=== PATIENT | male | born 1960 ===

== ENCOUNTER → 2018-10-30 | Outpatient (CLI) | payer OTHER | LOC: FIMAGING 07:51 | PROVIDERS: ATTEND Orthopaedic Surgery | DX: Z01.818 Encounter for other preprocedural examination (principal); M17.12 Unilateral primary osteoarthritis, left knee ==

== ENCOUNTER 2018-11-16 06:02 | Observation (INO) | payer OTHER ==
--- NOTE | 2018-11-16 06:25 | PDHPUP ---
History & Physical Update H&P update statement: This history and physical update is based on an assessment of the patient which was completed after admission or registration (within 24 hours), but prior to the surgery/procedure. H&P update: H&P reviewed & patient examined, no change in patient's condition since H&P completed
[2018-11-16] MEDS ORDERED: DEXAMETHASONE 4 MG/ML VIAL IVP ONE (06:30)
[2018-11-16] MEDS ORDERED: ACETAMINOPHEN 325 MG TAB PO ONE (06:30)
[2018-11-16] MEDS ORDERED: FAMOTIDINE 20 MG TAB PO ONE (06:30)
[2018-11-16] MEDS ORDERED: ceFAZolin 2 GM/DEXTROSE 100 ML IV ONE (06:30)
[2018-11-16] MEDS ORDERED: TRANEXAMIC ACID 3,000 MG/50 ML BAG IRR ONE (06:35)
[2018-11-16] MEDS ORDERED: PROPOFOL/EMULSION 500 MG/50 ML BOTTLE IV ONE ×3 (07:01→07:52)
[2018-11-16] MEDS ORDERED: fentaNYL 100 MCG/2 ML INJ ONE ×2 (07:02→08:49)
[2018-11-16] MEDS ORDERED: MIDAZOLAM 2 MG/2 ML VIAL ONE ×2 (07:04→07:49)
[2018-11-16] MEDS ORDERED: MIDAZOLAM 2 MG/2 ML VIAL IVP ONE (07:05)
--- NOTE | 2018-11-16 07:05 | PDANEPAE ---
ANE History of Present Illness left knee pain, here for L TKA ANE Past Medical History - Cardiovascular History Hx Hypertension: No Hx Arrhythmias: No Hx Chest Pain: No Hx Coronary Artery / Peripheral Vascular Disease: Yes Hx CHF / Valvular Disease: No Hx Palpitations: No Cardiovascular History Comment: CAD. dyslipidemia - Pulmonary History Hx COPD: No Hx Asthma/Reactive Airway Disease: No Hx Recent Upper Respiratory Infection: No Hx Oxygen in Use at Home: No Hx Sleep Apnea: Yes Sleep Apnea Screening Result - Last Documented: Positive Pulmonary History Comment: neo positive uses cpap- instructed pt to bring to hospital - Neurologic History Hx Cerebrovascular Accident: No Hx Seizures: No Hx Dementia: No - Endocrine History Hx Diabetes: No - Renal History Hx Renal Disorders: Yes Renal History Comment: bph. hx of kidney stones with nephrolithiasis - Liver History Hx Hepatic Disorders: No - Neurological & Psychiatric Hx Hx Neurological and Psychiatric Disorders: Yes Neurological / Psychiatric History Comment: generalized anxiety disorder. panic disorder - Cancer History Hx Cancer: No - Congenital Disorder History Hx Congenital Disorders: No - GI History Hx Gastrointestinal Disorders: Yes Gastrointestinal History Comment: reflux- on omeprazole. barretts esophagus - Other Health History Other Health History: none - Chronic Pain History Chronic Pain: Yes (left knee) - Surgical History Prior Surgeries: right RTC repair. right hand repair/ broken finger repair. UPPP to help with sleep apnea ANE Review of Systems Review of Systems: - Exercise capacity METS (RN): 4 METS ANE Patient History - Allergies Allergies/Adverse Reactions: Penicillins Allergy (Verified 10/30/18 11:24) "Strange Dreams" - Home Medications Home Medications: Acetamn/Diphenhydramine 500/25 [Tylenol PM (*)] 1 each PO HS PRN 10/23/18 [Last Taken 11/15/18 20:00] Atorvastatin Calcium [Lipitor 20 mg (*)] 20 mg PO DAILY 10/23/18 [Last Taken 05:00] Omeprazole 40 mg PO BID 10/23/18 [Last Taken 11/16/18 05:00] Alprazolam 0.5 mg 11/16/18 [Last Taken 1 Week Ago ~11/09/18] Aspirin 81mg (*) 11/16/18 [Last Taken 11/08/18] - NPO status NPO Since - Liquids (Date): 11/16/18 NPO Since - Liquids (Time): 04:00 NPO Since - Solids (Date): 11/15/18 NPO Since - Solids (Time): 19:00 - Smoking Hx Smoking Status: Never smoked - Family Anes Hx Family Hx Anesthesia Complications: father had stent placed 5 yrs ago and heart stopped, they believed it to be from anesthesia ANE Labs/Vital Signs - Vital Signs Blood Pressure: 143/80 Heart Rate: 79 Respiratory Rate: 16 O2 Sat (%): 95 Height: 190.5 cm Weight: 131.542 kg ANE Physical Exam - Airway Neck exam: FROM Mallampati Score: Class 3 Mouth exam: normal dental/mouth exam - Pulmonary Pulmonary: no respiratory distress, no rales or rhonchi - Cardiovascular Cardiovascular: regular rate and rhythym, no murmur, rub, or gallop - ASA Status ASA Status: III ANE Anesthesia Plan Anesthesia Plan: GA with mask, spinal Total IV Anesthesia: Yes
[2018-11-16] MEDS ORDERED: LIDOCAINE 2% 5 ML SDV ONE ×2 (07:06→08:38)
[2018-11-16] MEDS ORDERED: ROPIVACAINE 0.2% 80 MG, EPINEPHrine 0.2 MG, KETOROLAC TROMETHAMINE 30 MG in SYRINGE 0 ML IU ONE (08:00)
[2018-11-16] MEDS ORDERED: TRANEXAMIC ACID 3,000 MG in NS (SYRINGE) 50 ML IRR ONE (08:00)
[2018-11-16] MEDS ORDERED: ROPIVACAINE HCL 150 MG/30 ML INJ ONE (08:02)
[2018-11-16] MEDS ORDERED: NALOXONE HCL 0.4 MG/ML INJ IVP PRN (08:37)
[2018-11-16] MEDS ORDERED: LR 500 ML IV PRN (08:37)
[2018-11-16] MEDS ORDERED: oxyCODONE IR 5 MG TAB PO PRN (08:37)
[2018-11-16] MEDS ORDERED: ONDANSETRON 4 MG/2 ML VIAL IVP PRN ×2 (08:37→08:51)
[2018-11-16] MEDS ORDERED: HYDROmorphONE/DILAUDID 2 MG/ML INJ IVP PRN (08:37)
[2018-11-16] MEDS ORDERED: ACETAMINOPHEN 500 MG TAB PO PRN (08:37)
[2018-11-16] MEDS ORDERED: DIAZEPAM 5 MG/ML 1 ML SYR IVP PRN (08:37)
[2018-11-16] MEDS ORDERED: MEPERIDINE 25 MG/0.5 ML AMP IVP PRN (08:37)
[2018-11-16] MEDS ORDERED: fentaNYL 100 MCG/2 ML INJ IVP PRN (08:37)
[2018-11-16] MEDS ORDERED: DEXAMETHASONE 4 MG/ML VIAL ONE (08:38)
[2018-11-16] MEDS ORDERED: ONDANSETRON 4 MG/2 ML VIAL ONE (08:38)
[2018-11-16] MEDS ORDERED: TEMAZEPAM 15 MG CAP PO PRN (08:51)
[2018-11-16] MEDS ORDERED: LACTULOSE 20 GM/30 ML UDCUP PO PRN (08:51)
[2018-11-16] MEDS ORDERED: METOCLOPRAMIDE 10 MG/2 ML VIAL IVP PRN (08:51)
[2018-11-16] MEDS ORDERED: BISACODYL 10 MG SUPP PR PRN (08:51)
[2018-11-16] MEDS ORDERED: MAGNESIUM HYDROXIDE 30 ML UDCUP PO PRN (08:51)
[2018-11-16] MEDS ORDERED: CYCLOBENZAPRINE 10 MG TAB PO PRN (08:51)
[2018-11-16] MEDS ORDERED: POLYETHYLENE GLYCOL 3350 17 GM PKT PO PRN (08:51)
[2018-11-16] MEDS ORDERED: PROMETHAZINE HCL 25 MG SUPPR PR PRN (08:51)
[2018-11-16] MEDS ORDERED: DIPHENOXYLATE/ATROPINE LOMOTIL 1 TAB PO PRN (08:51)
[2018-11-16] MEDS ORDERED: diphenhydrAMINE 25 MG CAP PO PRN (08:51)
[2018-11-16] MEDS ORDERED: PROMETHAZINE HCL 25 MG/ML INJ IVP PRN (08:51)
[2018-11-16] MEDS ORDERED: ONDANSETRON DISINTEGRATING 4 MG TAB PO PRN (08:51)
--- NOTE | 2018-11-16 08:52 | POSTOPPROG ---
Post Op Note Date of Operation: 11/16/18 Surgeon: Reta Booth [employer] Instructor: Barbie Booth PA-C Anesthesiologist: dr. Yuan Anesthesia: Spinal, Other (Specify) (adductor canal block) Pre-op Diagnosis: left knee OA Post-op Diagnosis: same Indication: left knee pain Procedure: L TKA robot assisted Findings: severe knee OA Inf/Abcess present in the surg proc area at time of surgery?: No EBL: 50-100
[2018-11-16] MEDS ORDERED: LR 1,000 ML IV SCH (09:00)
--- NOTE | 2018-11-16 09:13 | POSTANESTH ---
Post Anesthetic Evaluation Cardiovascular Status: Normal, Stable Respiratory Status: Normal, Stable Level of Consciousness/Mental Status: Can Participate in Eval, Alert and Oriented Pain Control: Adequate, Prn Tx Ordered Nausea/Vomiting Control: Adequate, Prn Tx Ordered Complications Possibly Related to Anesthesia: None Noted
[2018-11-16] MEDS: oxyCODONE IR 5 MG TAB PO PRN (09:55)
[2018-11-16] MEDS ORDERED: ALPRAZolam 0.5 MG TAB PO PRN (10:10)
[2018-11-16] MEDS: SENNOSIDES/DOCUSATE SODIUM TAB PO SCH ×2 (12:19→22:06)
[2018-11-16] MEDS: ACETAMINOPHEN 325 MG TAB PO SCH ×2 (12:57→18:05)
--- NOTE | 2018-11-16 13:11 | GOP ---
[f rep st] OPERATIVE REPORT DATE OF OPERATION: 11/16/2018 SURGEON: Zach Contreras MD [employer] SUPERVISOR: YEE Rossi. ANESTHESIA: Spinal. PREOPERATIVE DIAGNOSIS: Left knee osteoarthritis. POSTOPERATIVE DIAGNOSIS: Left knee osteoarthritis. PROCEDURE PERFORMED: Left total knee arthroplasty with computer navigation, robotic assist. FINDINGS: ESTIMATED BLOOD LOSS: 30. INDICATIONS: The patient is a 57-year-old male with severe and progressive pain and deformity of the left knee unresponsive to conservative care. The risks and benefits of surgical intervention were explained in detail. DESCRIPTION OF PROCEDURE: The patient was brought to the operative room and placed on the table in the supine position. Spinal anesthesia was induced without difficulty. A pneumatic tourniquet was applied about the left proximal thigh, and the leg was prepped and draped in a sterile fashion. The leg hughes was applied. After exsanguination by elevation the tourniquet was inflated to 250 mmHg. Incision was made anterior medial from the tibial tuberosity to a point 2 cm proximal to the superior pole of the patella. Medial parapatellar arthrotomy was carried out from the superior pole of the patella and posteriorly in line with the fibers of the Type II VMO. The medial collateral ligament was elevated and the infrapatellar fat pad was resected. The patella was everted and the articular surface was excised. A 40 mm patellar button was placed. Attention was turned first to the distal aspect of the femur. After exposure of the femur, 2 half pins were placed for fixation of the femoral array. In a similar fashion, 2 pins were placed anteromedial on the tibia for fixation of the tibial array. External land marking and registration of the hip center was performed without difficulty. Internal femoral and tibial registration was carried out without difficulty and the femoral and tibial checkpoints were placed and verified for accuracy. Attention was turned to the femur. The foot print for the size 5 femoral component was cut with the saw using the [employer] robotic system and verified for accuracy against the CT based plan. In a similar fashion, the saw was used to cut the footprint for the size 6 tibial component using the [employer] system and verified for accuracy against the CT based plan. The tibial articular surface was excised without difficulty, followed by the intercondylar box cut. The knee was extended and the remnants of the medial and lateral meniscus were excised. The posterior capsule was injected with ropivacaine, epinephrine and Toradol. A size 6 tibial tray was positioned. Trial reduction was then carried out. There was excellent range of motion, alignment, and stability using the 6 x 9 mm polyethylene. All trials were then removed. The joint was thoroughly irrigated and carefully dried. The press-fit components were implanted. The permanent 6 x 9 mm polyethylene was placed without difficulty. The tourniquet was deflated and all bleeders were coagulated. The wound was thoroughly irrigated and closed using interrupted sutures of 2-0 Vicryl for the joint capsule. The subcu was closed with 3-0 Vicryl and the skin with 4-0 Monocryl. Dermabond and Steri-Strips were applied followed by a compressive dressing. The patient was then moved from the operating room to the recovery room in good condition, having tolerated the procedure well. PATHOLOGY: Severe tricompartmental osteoarthritis. /[id number]/MODL MTDD
[2018-11-16] MEDS: ceFAZolin 2 GM/DEXTROSE 100 ML IV SCH (16:08)
[2018-11-16] MEDS: ASPIRIN 81 MG CHEWABLE TAB PO SCH (22:05)
[2018-11-16] MEDS: FAMOTIDINE 20 MG TAB PO SCH (22:06)
[2018-11-17] MEDS: ceFAZolin 2 GM/DEXTROSE 100 ML IV SCH (00:09)
[2018-11-17] MEDS: ACETAMINOPHEN 325 MG TAB PO SCH ×3 (00:10→12:06)
[2018-11-17] MEDS: ASPIRIN 81 MG CHEWABLE TAB PO SCH (08:15)
[2018-11-17] MEDS: oxyCODONE IR 5 MG TAB PO PRN ×2 (08:16→12:07)
[2018-11-17] MEDS: SENNOSIDES/DOCUSATE SODIUM TAB PO SCH (08:16)
[2018-11-17] MEDS: FAMOTIDINE 20 MG TAB PO SCH (08:16)
[2018-11-17 08:27] VITALS: BP 122/63
[2018-11-17] MEDS ORDERED: ATORVASTATIN CALCIUM 20 MG TAB PO SCH (09:00)
--- NOTE | 2018-11-17 10:15 | SOAPPROG ---
SOAP Progress Note Assessment/Plan: Assessment: Patient is doing well POD 1 s/p LTKA Pain management: pain is well controlled on oral pain meds. VTE ppx: recommend 81 mg aspirin morning and evening for 4 weeks, cont LARRY and SCDs Anemia: level is expected initially postop. Asymptomatic. Continue to monitor D/c planning:patient has done much better than anticipated. Patient is stable, BP stable, pain well controlled and patient is eager for discharge to home. May d/c to home today pending release from PT Plan: 11/17/18 10:12 Subjective: No nausea, vomiting, shortness of breath or chest pain. Pain well-controlled. Objective: Vital Signs Temp Pulse Resp BP Pulse Ox 36.4 C 72 16 122/63 H 95 11/17/18 08:00 11/17/18 08:00 11/17/18 08:00 11/17/18 08:00 11/17/18 08:00 Laboratory Results 11/17/18 04:17 11/16/18 11/17/18 11/18/18 05:59 05:59 05:59 Intake Total 1941 500 Output Total 2125 700 Balance -184 -200 LLE: incision dressing clean and dry, NVI, negative DF/PF ICD10 Worksheet Patient Problems: Problems Problem Status Onset Primary osteoarthritis of left knee Acute
--- NOTE | 2018-11-17 10:40 | ASMTLACE ---
[facility] Length of stay for Answers: 2 days current admission Acuity / Level of Answers: No Care: Did the patient have an inpatient admission? Comorbidities - select Answers: Coronary Artery Disease all that apply Opioid dependence / Chronic pain # of Emergency department Answers: 0 visits in the last 6 months Social determinants Answers: Mental health diagnosis (anxiety, depression, pers onality disorders, etc.) Score: 11 Date Signed: 11/17/2018 10:39 AM Electronically Signed By:LEE Encinas
--- NOTE | 2018-11-17 12:31 | GDS ---
[f rep st] DISCHARGE SUMMARY ADMISSION DIAGNOSIS: Left knee osteoarthritis. DISCHARGE DIAGNOSIS: Left knee osteoarthritis. PROCEDURE: Left total knee arthroplasty, robot-assisted. VTE PROPHYLAXIS: Recommend: Aspirin 81 mg twice daily for 4 weeks. BRIEF DESCRIPTION OF HOSPITAL STAY: Patient was admitted for an elective joint arthroplasty. The pa jenna tolerated the procedure well and has passed physical therapy. The patient was given appropriat e antibiotic prophylaxis and venous thromboembolism prophylaxis. The patient's pain was well control led on oral pain medication, patient was holding down food, and had urinated. Decision was made to d ischarge the patient. The patient was given post-operative prescriptions pre-operatively. PLAN: To follow up with Dr. Contreras's office on December 07 at 8:45 a.m. /[id number]/MODL
== END 2018-11-17 12:22 | disposition home or self-care (01) ==
LOC: F3N 06:02 → EDSTATUS 08:00 → F3N 11:54
PROVIDERS: ADMIT Orthopaedic Surgery; ATTEND Orthopaedic Surgery
DX: M17.12 Unilateral primary osteoarthritis, left knee (principal); Z23 Encounter for immunization
CPT/HCPCS: 27447; 73560; 90471; 97110; 97116; 97161; G0378; G0008; J0171; J0690; J1100; J1885; J2250; J2405; J2704; J2795; J3010